=== PATIENT | female | born 1965 | race Hispanic/Latino ===

== ENCOUNTER 2022-07-14 19:55 | Emergency (ER) | payer SELFPAY ==
[2022-07-14 21:40] LABS: Protime INR 1.04
[2022-07-14 21:41] LABS: Hematocrit 41.2 % (36.0-45.0); Lymphocytes % 36.2 % (15.3-44.8); MCV 84.6 fL (80-100); MPV 8.6 fL (7.6-11.3); RBC Red Blood Cell Count 4.87 M/uL (3.86-4.86)
[2022-07-14 22:02] LABS: Bilirubin Direct 0.2 mg/dL (0-0.2); Bilirubin Total 0.8 mg/dL (0.2-1.0); Magnesium 1.7 mg/dL (1.6-2.4); Potassium 3.2 mmol/L (3.5-5.1); Protein, Total 7.7 g/dL (6.4-8.2); Troponin High Sensitivity 5.2 pg/mL (<58.9)
--- NOTE | 2022-07-14 22:14 | RAD REPORT ---
EXAM DESCRIPTION: RAD - Chest Single View - 07/14/2022 9:54 pm CLINICAL HISTORY: COUGH Chest pain. COMPARISON: No comparisons FINDINGS: Portable technique limits examination quality. The lungs are grossly clear. The heart is normal in size. No displaced fractures. IMPRESSION: No acute intrathoracic process suspected.
[2022-07-14 22:55] LABS: Urine Blood 1+ (Negative); Urine Glucose Negative (Negative); Urine Protein Negative (Negative)
--- NOTE | 2022-07-14 23:44 | EDPHYS ---
Physician Documentation [facility] Name: Liv Santiago Age: 57 yrs Sex: Female : 1965 Arrival Date: 07/14/2022 Time: 19:58 Bed 3 Private MD: ED Physician Danny Barbosa HPI: 07/14 23:36 This 57 yrs old Female presents to ER via Ambulatory with complaints of High anne Blood Pressure. 23:36 The patient has elevated blood pressure and discovered this at home, with a home anne device. Onset: The symptoms/episode began/occurred 2 day(s) ago. Historical: - Allergies: 20:17 Compazine; hb - Home Meds: 20:18 amlodipine oral [Active]; losartan oral [Active]; hb - PMHx: 20:17 HTN; hb - Immunization history:: Adult Immunizations unknown. - Social history:: Smoking status: Patient denies any tobacco usage or history of. ROS: 23:37 Constitutional: Negative for fever, chills, and weight loss, Eyes: Negative for injury, anne pain, redness, and discharge, ENT: Negative for injury, pain, and discharge, Neck: Negative for injury, pain, and swelling, Cardiovascular: Negative for chest pain, palpitations, and edema, Respiratory: Negative for shortness of breath, cough, wheezing, and pleuritic chest pain, Abdomen/GI: Negative for abdominal pain, nausea, vomiting, diarrhea, and constipation, Back: Negative for injury and pain, : Negative for injury, bleeding, discharge, and swelling, MS/Extremity: Negative for injury and deformity, Skin: Negative for injury, rash, and discoloration, Neuro: Negative for headache, weakness, numbness, tingling, and seizure, Psych: Negative for depression, anxiety, suicide ideation, homicidal ideation, and hallucinations, Allergy/Immunology: Negative for hives, rash, and allergies, Endocrine: Negative for neck swelling, polydipsia, polyuria, polyphagia, and marked weight changes, Hematologic/Lymphatic: Negative for swollen nodes, abnormal bleeding, and unusual bruising. Exam: 23:37 Constitutional: This is a well developed, well nourished patient who is awake, alert, anne and in no acute distress. Head/Face: Normocephalic, atraumatic. Eyes: Pupils equal round and reactive to light, extra-ocular motions intact. Lids and lashes normal. Conjunctiva and sclera are non-icteric and not injected. Cornea within normal limits. Periorbital areas with no swelling, redness, or edema. ENT: Nares patent. No nasal discharge, no septal abnormalities noted. Tympanic membranes are normal and external auditory canals are clear. Oropharynx with no redness, swelling, or masses, exudates, or evidence of obstruction, uvula midline. Mucous membranes moist. Neck: Trachea midline, no thyromegaly or masses palpated, and no cervical lymphadenopathy. Supple, full range of motion without nuchal rigidity, or vertebral point tenderness. No Meningismus. Chest/axilla: Normal chest wall appearance and motion. Nontender with no deformity. No lesions are appreciated. Cardiovascular: Regular rate and rhythm with a normal S1 and S2. No gallops, murmurs, or rubs. Normal PMI, no JVD. No pulse deficits. Respiratory: Lungs have equal breath sounds bilaterally, clear to auscultation and percussion. No rales, rhonchi or wheezes noted. No increased work of breathing, no retractions or nasal flaring. Abdomen/GI: Soft, non-tender, with normal bowel sounds. No distension or tympany. No guarding or rebound. No evidence of tenderness throughout. Back: No spinal tenderness. No costovertebral tenderness. Full range of motion. Skin: Warm, dry with normal turgor. Normal color with no rashes, no lesions, and no evidence of cellulitis. MS/ Extremity: Pulses equal, no cyanosis. Neurovascular intact. Full, normal range of motion. Neuro: Awake and alert, GCS 15, oriented to person, place, time, and situation. Cranial nerves II-XII grossly intact. Motor strength 5/5 in all extremities. Sensory grossly intact. Cerebellar exam normal. Normal gait. Psych: Awake, alert, with orientation to person, place and time. Behavior, mood, and affect are within normal limits. 23:37 Musculoskeletal/extremity: Extremities: all appear grossly normal, with no appreciated pain with palpation, ROM: no acute changes, Circulation is intact in all extremities. Sensation intact. Compartment Syndrome exam of affected extremity: is normal. DVT Exam: No signs of deep vein thrombosis. no pain, no swelling, no tenderness, negative Homans' sign noted on exam, no appreciated bluish discoloration, no erythema, no increased warmth. 23:47 ECG was reviewed by the Attending Physician. [facility] Vital Signs: 20:16 BP 163 / 91; Pulse 59; Resp 16; Temp 97.4; Pulse Ox 100% on R/A; Weight 65.77 kg; hb Height 5 ft. 6 in. (167.64 cm); Pain 6/10; 22:54 BP 133 / 82; Pulse 63; Resp 20 S; Pulse Ox 100% on R/A; as6 23:39 BP 123 / 80; Pulse 58; Resp 16 S; Pulse Ox 100% on R/A; as6 20:16 Body Mass Index 23.40 (65.77 kg, 167.64 cm) hb MDM: 20:39 Patient medically screened. anne 23:39 Differential diagnosis: hypertensive crisis, Malignant HTN. Data reviewed: vital signs, [facility] nurses notes. Data interpreted: classroom monitor: rate is 63 beats/min, rhythm is normal sinus rhythm, regular. Test interpretation: by ED physician or midlevel provider: ECG, plain radiologic studies. Counseling: I had a detailed discussion with the patient and/or guardian regarding: the historical points, exam findings, and any diagnostic results supporting the discharge/admit diagnosis, lab results, radiology results, the need for outpatient follow up, for definitive care, a drawing box tender, a family practitioner. 12 20:40 Order name: Basic Metabolic Panel; Complete Time: 23:32 [facility] 07/14 20:40 Order name: CBC with Diff; Complete Time: 23:32 [facility] 07/14 20:40 Order name: LFT's; Complete Time: 23:32 anne 07/14 20:40 Order name: Magnesium; Complete Time: 23:32 anne 07/14 20:40 Order name: NT PRO-BNP; Complete Time: 23:32 anne 07/14 20:40 Order name: PT-INR; Complete Time: 23:32 anne 07/14 20:40 Order name: Troponin HS; Complete Time: 23:32 anne 07/14 20:40 Order name: XRAY Chest (1 view); Complete Time: 23:32 anne 07/14 20:40 Order name: EKG; Complete Time: 20:41 anne 07/14 22:55 Order name: Urine Dipstick-Ancillary; Complete Time: 23:32 [facility] 07/14 22:57 Order name: Urine Dipstick-Ancillary [facility] 07/14 23:37 Order name: Urine Microscopic Only [facility] 07/14 20:40 Order name: Cardiac monitoring; Complete Time: 21:45 [facility] 07/14 20:40 Order name: EKG - Nurse/Tech; Complete Time: 21:45 [facility] 07/14 20:40 Order name: IV Saline Lock; Complete Time: 21:27 [facility] 07/14 20:40 Order name: Labs collected and sent; Complete Time: 21:27 [facility] 07/14 20:40 Order name: O2 Per Protocol; Complete Time: 21:45 [facility] 07/14 20:40 Order name: O2 Sat Monitoring; Complete Time: :45 [facility] 07/14 20:40 Order name: Urine Dipstick-Ancillary (obtain specimen); Complete Time: 23:02 [facility] EC:47 Rate is 53 beats/min. Rhythm is regular. QRS [place] is Normal. [place] interval is normal. QRS anne interval is normal. QT interval is normal. No Q waves. T waves are Normal. No ST changes noted. Clinical impression: Sinus bradycardia. Interpreted by me. Reviewed by me. Administered Medications: 07/15 00:06 Drug: Potassium Effervescent Tablet 25 mEq Route: PO; as 00:08 Follow up: Response: No adverse reaction as6 00:07 Drug: Norvasc (amlodipine) 5 mg Route: PO; as 00:08 Follow up: Response: No adverse reaction as6 Disposition Summary: 07/14/22 23:43 Discharge Ordered Location: Home anne Problem: new anne Symptoms: have improved anne Condition: Stable anne Diagnosis - Essential (primary) hypertension anne - UTI/ Urinary tract infection, site not specified anne Followup: anne - With: Private Physician - When: 2 - 3 days - Reason: Recheck today's complaints, Continuance of care, Re-evaluation by your physician Discharge Instructions: - Discharge Summary Sheet anne - Dysuria anne - Hypertension, Adult anne - Urinary Tract Infection, Adult anne - Urinary Tract Infection, Adult, Adzd-[id number] anne - Hypertension, Adult, Wyfa-ys-Cybp anne - How to Take Your Blood Pressure, Oqlz-ph-[id number] anne - Managing Your Hypertension anne Forms: - Medication Reconciliation Form anne - Thank You Letter anne - Antibiotic Education anne - Prescription Opioid Use anne Prescriptions: - Bactrim DS 800-160 mg Oral Tablet - take 1 tablet by ORAL route every 12 hours for 5 days; 10 tablet; Refills: 0, anne Product Selection Permitted Signatures: Dispatcher [employer] Danny Damian MD MD cha Baxter, Heather, RN RN hb Virgilio Collier RN RN as6
--- NOTE | 2022-07-14 23:44 | ER ---
Nurse's Notes [facility] Name: Liv Santiago Age: 57 yrs Sex: Female : 1965 Arrival Date: 07/14/2022 Time: 19:58 Bed 3 Private MD: Diagnosis: Essential (primary) hypertension;UTI/ Urinary tract infection, site not specified Presentation: 07/14 20:16 Chief complaint: Headache and N/V since this morning. Home BP 206/110, unable to hb tolerate PO meds. Coronavirus screen: At this time, the client does not indicate any symptoms associated with coronavirus-19. Ebola Screen: No symptoms or risks identified at this time. Initial Sepsis Screen: Does the patient meet any 2 criteria? No. Patient's initial sepsis screen is negative. Does the patient have a suspected source of infection? No. Patient's initial sepsis screen is negative. Risk Assessment: Do you want to hurt yourself or someone else? Patient reports no desire to harm self or others. Onset of symptoms was July 14, 2022. 20:16 Method Of Arrival: Ambulatory hb 20:16 Acuity: RUBEN 3 hb Historical: - Allergies: 20:17 Compazine; hb - Home Meds: 20:18 amlodipine oral [Active]; losartan oral [Active]; hb - PMHx: 20:17 HTN; hb - Immunization history:: Adult Immunizations unknown. - Social history:: Smoking status: Patient denies any tobacco usage or history of. Screenin/09 00:07 Abuse screen: Denies threats or abuse. Denies injuries from another. Nutritional as6 screening: No deficits noted. Tuberculosis screening: No symptoms or risk factors identified. Fall Risk None identified. Assessment: 07/14 21:30 General: Appears in no apparent distress. comfortable, Behavior is calm, cooperative, jb4 appropriate for age. Pain: Complains of pain in headache Pain does not radiate. Pain currently is 6 out of 10 on a pain scale. Neuro: Level of Consciousness is awake, alert, obeys commands, Oriented to person, place, time, situation. Cardiovascular: Patient's skin is warm and dry. Respiratory: Airway is patent Respiratory effort is even, unlabored, Respiratory pattern is regular, symmetrical. GI: No signs and/or symptoms were reported involving the gastrointestinal system. : No signs and/or symptoms were reported regarding the genitourinary system. EENT: No signs and/or symptoms were reported regarding the EENT system. Derm: Skin is intact, Skin is pink, warm \T\ dry. Musculoskeletal: Circulation, motion, and sensation intact. Range of motion: intact in all extremities. 22:30 Reassessment: Patient appears in no apparent distress at this time. Patient and/or jb4 family updated on plan of care and expected duration. Pain level reassessed. Patient is alert, oriented x 3, equal unlabored respirations, skin warm/dry/pink. Vital Signs: 20:16 BP 163 / 91; Pulse 59; Resp 16; Temp 97.4; Pulse Ox 100% on R/A; Weight 65.77 kg; hb Height 5 ft. 6 in. (167.64 cm); Pain 6/10; 22:54 BP 133 / 82; Pulse 63; Resp 20 S; Pulse Ox 100% on R/A; as6 23:39 BP 123 / 80; Pulse 58; Resp 16 S; Pulse Ox 100% on R/A; as6 20:16 Body Mass Index 23.40 (65.77 kg, 167.64 cm) hb ED Course: 19:58 Patient arrived in ED. jj6 20:17 Triage completed. hb 20:18 Arm band placed on. hb 20:39 Danny Barbosa MD is Attending Physician. anne 21:28 Basic Metabolic Panel Sent. rv1 21:28 CBC with Diff Sent. rv1 21:28 LFT's Sent. rv1 21:28 Magnesium Sent. rv1 21:28 NT PRO-BNP Sent. rv1 21:28 PT-INR Sent. rv1 21:28 Troponin HS Sent. rv1 21:28 Inserted saline lock: 20 gauge in left antecubital area, using aseptic technique. Blood rv1 collected. 21:51 Darrian Salas, MELODY is Primary Nurse. jb4 21:57 XRAY Chest (1 view) In Process Unspecified. EDMS 07/15 00:07 Bed in low position. Call light in reach. Side rails up X2. as6 00:08 No provider procedures requiring assistance completed. IV discontinued, intact, as6 bleeding controlled, No redness/swelling at site. Pressure dressing applied. Administered Medications: 00:06 Drug: Potassium Effervescent Tablet 25 mEq Route: PO; as6 00:08 Follow up: Response: No adverse reaction as6 00:07 Drug: Norvasc (amlodipine) 5 mg Route: PO; as6 00:08 Follow up: Response: No adverse reaction as6 Medication: 00:07 VIS not applicable for this client. as6 Outcome: 07/14 23:43 Discharge ordered by MD. rodríguez 07/15 00:08 Discharged to home ambulatory. as6 Condition: stable Discharge instructions given to patient, Instructed on discharge instructions, follow up and referral plans. medication usage, Demonstrated understanding of instructions, follow-up care, medications, Prescriptions given X 1. 00:08 Patient left the ED. as6 Signatures: Dispatcher [employer] EDMS Danny Barbosa MD MD cha Baxter, Heather, RN RN Darrian Salas RN RN jb4 Radha Colby Ashby, RN RN as6 Katie Hurtado [facility]
[2022-07-15] MEDS ORDERED: AMLODIPINE 5 MG TAB ONE (00:01)
[2022-07-15] MEDS ORDERED: POTASSIUM 25 MEQ EFFERV TAB ONE (00:02)
[2022-07-15 00:25] LABS: Urine Bacteria <20 /HPF (<20); Urine RBC <5 /HPF (None Seen)
[2022-07-15 02:18] VITALS: TEMP 97.4; O2SAT 100
[2022-07-15 02:21] VITALS: BP 123/80
--- NOTE | 2022-07-15 17:37 | EKG ---
Test Date: 2022-07-14 Test Time: 21:41:09 Maintenance Engineer: DAVIN MEASUREMENT RESULTS: Intervals: Rate: 53 DE: 160 QRSD: 88 QT: 454 QTc: 426 [place]: P: 49 DE: 160 QRS: 69 T: 67 INTERPRETIVE STATEMENTS: Sinus bradycardia Otherwise normal ECG No previous ECG available for comparison Electronically Signed On 07-15-22 17:36:36 SHAKE CUTTER by Oscar Brown
== END 2022-07-15 00:08 | disposition home or self-care (01) ==
LOC: ER 19:55
DX: I10 Essential (primary) hypertension (principal); N39.0 Urinary tract infection, site not specified; Z88.1 Allergy status to other antibiotic agents
CPT/HCPCS: 36415; 71045; 80048; 80076; 81003; 81015; 83735; 83880; 84484; 85025; 85610; 93005; 99284

== ENCOUNTER 2023-11-05 19:13 | Emergency (ER) | payer SELFPAY ==
[2023-11-05] MEDS ORDERED: IBUPROFEN 200 MG TAB PO ONE (19:42)
[2023-11-05] MEDS ORDERED: LIDOCAINE HCL JELLY 2% 6 ML SYRINGE TOP ONE (19:43)
[2023-11-05] MEDS ORDERED: IBUPROFEN 400 MG TAB ONE (19:43)
--- NOTE | 2023-11-05 20:32 | RAD REPORT ---
EXAM DESCRIPTION: - Finger-Thumb Left - 11/05/2023 8:20 pm CLINICAL HISTORY: PAIN COMPARISON: No comparisons FINDINGS/IMPRESSION: No acute fracture. No malalignment. Degenerative changes are present at the thi rd distal interphalangeal joint .
--- NOTE | 2023-11-05 21:34 | ER ---
Nurse's Notes [facility] Name: Liv Santiago Age: 58 yrs Sex: Female : 1965 Arrival Date: 11/05/2023 Time: 19:13 Bed 9 Private MD: Diagnosis: Encounter for removal of sutures Presentation: 11/04 19:30 Chief complaint: Patient states: "I got stitches on the and I want them out but as6 someone told me that it looks infected". Coronavirus screen: At this time, the client does not indicate any symptoms associated with coronavirus-19. Ebola Screen: No symptoms or risks identified at this time. Initial Sepsis Screen: Does the patient meet any 2 criteria? No. Patient's initial sepsis screen is negative. Does the patient have a suspected source of infection? No. Patient's initial sepsis screen is negative. Risk Assessment: Do you want to hurt yourself or someone else? Patient reports no desire to harm self or others. Onset of symptoms was October 24, 2023. 19:30 Acuity: RUBEN 4 as6 19:30 Method Of Arrival: Ambulatory as6 Triage Assessment: 19:39 General: Appears in no apparent distress. Behavior is calm, cooperative. Injury mb9 Description: Laceration sustained to left thumb is sutures noted was sustained sutures done on 10/24/23. Historical: - Allergies: 19:31 Compazine; as6 - PMHx: 19:31 HTN; as6 - PSHx: 19:31 section; Lithotripsy; knee; Appendectomy; as6 - Immunization history:: Adult Immunizations up to date. - Social history:: Smoking status: Patient denies any tobacco usage or history of. Screenin:40 [facility] ED Fall Risk Assessment (Adult) History of falling in the last 3 months, mb9 including since admission No falls in past 3 months (0 pts) Confusion or Disorientation No (0 pts) Intoxicated or Sedated No (0 pts) Impaired Gait No (0 pts) Mobility Assist Device Used No (0 pt) Altered Elimination No (0 pt) Score/Fall Risk Level 0 - 2 = Low Risk Oriented to surroundings, Maintained a safe environment, Educated pt \\T\\ family on fall prevention, incl call for assistance when getting out of bed. Abuse screen: Denies threats or abuse. Nutritional screening: No deficits noted. Tuberculosis screening: No symptoms or risk factors identified. Assessment: 19:38 General: Appears in no apparent distress. Behavior is calm, cooperative. Pain: mb9 Complains of pain in left thumb Pain does not radiate. Quality of pain is described as throbbing. Neuro: Boyd Agitation-Sedation Scale (RASS): 0 - Alert and Calm Level of Consciousness is awake, alert, obeys commands, Oriented to person, place, time, situation, Appropriate for age. Cardiovascular: Patient's skin is warm and dry. Respiratory: Airway is patent Respiratory effort is even, unlabored, Respiratory pattern is regular, symmetrical, Breath sounds are clear bilaterally. GI: No signs and/or symptoms were reported involving the gastrointestinal system. : No signs and/or symptoms were reported regarding the genitourinary system. EENT: No signs and/or symptoms were reported regarding the EENT system. Derm: Skin is pink, warm \\T\\ dry. Derm: sutures noted to left thumb. Musculoskeletal: Range of motion: intact in all extremities. 20:38 Reassessment: No changes from previously documented assessment. Patient and/or family mb9 updated on plan of care and expected duration. Pain level reassessed. Patient is alert, oriented x 3, equal unlabored respirations, skin warm/dry/pink. 21:26 Reassessment: Patient appears in no apparent distress at this time. Patient and/or pf1 family updated on plan of care and expected duration. Pain level reassessed. Patient is alert, oriented x 3, equal unlabored respirations, skin warm/dry/pink. Vital Signs: 19:30 BP 142 / 83; Pulse 79; Resp 17 S; Temp 97.4(TE); Pulse Ox 98% on R/A; Weight 64.86 kg as6 (R); Height 5 ft. 6 in. (R); Pain 7/10; 21:45 BP 124 / 84; Pulse 75; Resp 16; Temp 97.9; Pulse Ox 99% on R/A; Pain 0/10; pf1 19:30 Body Mass Index 23.08 (64.86 kg, 167.64 cm) as6 19:30 Pain Scale: Adult as6 21:45 Pain Scale: Adult pf1 ED Course: 19:16 Patient arrived in ED. im 19:21 Danny Noriega PA is PHCP. cp 19:21 Julian Griffin MD is Attending Physician. cp 19:31 Triage completed. as6 19:32 Arm band placed on. as6 19:38 Li Alarcon, MELODY is Primary Nurse. mb9 19:39 Placed in gown. Bed in low position. Call light in reach. Side rails up X 1. Provided mb9 Education on: press call light if needing anything. Client placed on continuous cardiac and pulse oximetry monitoring. NIBP monitoring applied. Door closed. Noise minimized. Warm blanket given. 19:59 Wound care: to laceration located on left thumb was cleaned with Betadine, soaked in mb9 Hibiclens solution, Patient tolerated well. 20:22 XRAY Finger-Thumb Left In Process Unspecified. EDMS 21:30 Dressings: gauze with Coban. pf1 21:30 Patient did not have IV access during this emergency room visit. pf1 21:45 No provider procedures requiring assistance completed. pf1 Administered Medications: 19:47 Drug: Lidocaine Mucous Membrane Gel 2 % 1 ea 15 ml Mucous Membrane once Volume: 15 ml; mb9 Route: Mucous Membrane; 19:47 Drug: Ibuprofen PO 600 mg PO once Route: PO; mb9 20:41 Follow up: Response: No adverse reaction mb9 21:38 Drug: Doxycycline PO 100 mg PO once Route: PO; pf1 21:45 Follow up: Response: No adverse reaction pf1 Medication: 19:41 VIS not applicable for this client. mb9 Outcome: 21:34 Discharge ordered by MD. cp 21:45 Discharged to home ambulatory, pf1 21:45 Condition: improved 21:45 Discharge instructions given to patient, Instructed on discharge instructions, follow up and referral plans. Demonstrated understanding of instructions, follow-up care, medications, Prescriptions given X 1, 21:45 Patient left the ED. pf1 Signatures: Dispatcher [employer] EDMS Danny Noriega PA PA cp Virgilio Collier RN RN as6 Li Alarcon, MELODY OLIVER mb9 Hoa Rodriguez RN RN pf1 Yael Santiago Corrections: (The following items were deleted from the chart) 22:01 22:01 Patient left the ED. pf1 pf1
--- NOTE | 2023-11-05 21:34 | EDPHYS ---
Physician Documentation [facility] Name: Liv Santiago Age: 58 yrs Sex: Female : 1965 Arrival Date: 11/05/2023 Time: 19:13 Bed 9 Private MD: ED Physician Julian Griffin HPI: 11/04 19:45 This 58 yrs old Female presents to ER via Ambulatory with complaints of Finger cp Injury. 19:45 The patient or guardian complains of removal of stitches from tip of left thumb that cp were placed at urgent care in [place] on 10-24-2023. 19:45 Context: patient reports laceration was sutured and then glue was placed over wound to cp help control bleeding after injury and for original treatment. patient here due to concern for wound infection. Treatment prior to arrival includes: no previous treatment. Historical: - Allergies: 19:31 Compazine; as6 - PMHx: 19:31 HTN; as6 - PSHx: 19:31 section; Lithotripsy; knee; Appendectomy; as6 - Immunization history:: Adult Immunizations up to date. - Social history:: Smoking status: Patient denies any tobacco usage or history of. ROS: 19:50 MS/extremity: Positive for swelling, tenderness, of the distal tip of left thumb, cp Negative for decreased range of motion, 19:50 All other systems are negative, cp Exam: 19:55 Constitutional: The patient appears in no acute distress, alert, awake, non-toxic, well cp developed, well nourished, 19:55 Head/Face: Normocephalic, atraumatic. cp 19:55 Musculoskeletal/extremity: Extremities: noted in the distal tip of left thumb: skin appears with dehiscence, mild swelling with minimal extension to fat pad, minimal erythema and no drainage expressed, [address], ROM: full active range of motion, in the left thumb, Perfusion: the extremity is normally perfused throughout, the distal tip of left thumb decreased sensation, mild Tendon exam: specific tendon testing normal through active and passive range of motion Vital Signs: 19:30 BP 142 / 83; Pulse 79; Resp 17 S; Temp 97.4(TE); Pulse Ox 98% on R/A; Weight 64.86 kg as6 (R); Height 5 ft. 6 in. (R); Pain 7/10; 21:45 BP 124 / 84; Pulse 75; Resp 16; Temp 97.9; Pulse Ox 99% on R/A; Pain 0/10; pf1 19:30 Body Mass Index 23.08 (64.86 kg, 167.64 cm) as6 19:30 Pain Scale: Adult as6 21:45 Pain Scale: Adult pf1 Procedures: 21:29 Suture/Staple removal: Removed 4 sutures, from distal tip of left thumb, site appears cp dehiscence of wound, mild swelling and tenderness with minimal erythema, Patient tolerated well. MDM: 19:34 Patient medically screened. cp 20:00 Differential diagnosis: cellulitis, fracture, osteomyelitis. cp 21:33 Data reviewed: vital signs, nurses notes, radiologic studies, plain films. cp 21:33 I considered the following discharge prescriptions or medication management in the emergency department Medications were administered in the Emergency Department. See MAR. Independent interpretation of the following test(s) in the Emergency Department X-Ray: My interpretation is images of left thumb negative for fracture. Counseling: I had a detailed discussion with the patient and/or guardian regarding the historical points, exam findings, and any diagnostic results supporting the discharge/admit diagnosis, radiology results, the need for outpatient follow up, a family practitioner, to return to the emergency department if symptoms worsen or persist or if there are any questions or concerns that arise at home. Response to treatment: the patient's symptoms have mildly improved after treatment, and as a result, I will discharge patient. 11/04 19:37 Order name: XRAY Finger-Thumb Left; Complete Time: 21:03 cp Administered Medications: 19:47 Drug: Lidocaine Mucous Membrane Gel 2 % 1 ea 15 ml Mucous Membrane once Volume: 15 ml; mb9 Route: Mucous Membrane; 19:47 Drug: Ibuprofen PO 600 mg PO once Route: PO; mb9 20:41 Follow up: Response: No adverse reaction mb9 21:38 Drug: Doxycycline PO 100 mg PO once Route: PO; pf1 21:45 Follow up: Response: No adverse reaction pf1 Disposition: 22:56 Co-signature as Attending Physician, Julian Griffin MD I reviewed the patient's care rn provided by the Advanced Practice Provider and agree with the diagnosis and treatment plan. Disposition Summary: 11/05/23 21:34 Discharge Ordered Notes: Location: Home cp Problem: new cp Symptoms: have improved cp Condition: Stable cp Diagnosis - Encounter for removal of sutures cp Followup: cp - With: Private Physician - When: 2 - 3 days - Reason: Wound Recheck Discharge Instructions: - Discharge Summary Sheet cp - How to Change Your Wound Dressing cp - Suture Removal, Care After cp Forms: - Medication Reconciliation Form cp - Thank You Letter cp - Antibiotic Education cp - Prescription Opioid Use cp - Patient Portal Instructions cp - Leadership Thank You Letter cp Prescriptions: - Doxycycline Monohydrate 100 mg Oral Tablet - take 1 tablet ORAL route every 12 hours for 10 days; 20 tablet; Refills: 0, cp Product Selection Permitted Signatures: Dispatcher [employer] EDJulian Boateng MD MD rn Danny Noriega PA PA cp Slawson, Ashby RN RN as6 Li Alarcon RN RN mb9 Hoa Rodriguez RN RN pf1
[2023-11-05] MEDS ORDERED: DOXYCYCLINE 100 MG CAP PO ONE (21:46)
[2023-11-06 03:42] VITALS: BP 124/84; TEMP 97.9; O2SAT 99
== END 2023-11-05 22:01 | disposition home or self-care (01) ==
LOC: ER 19:13
DX: Z48.02 Encounter for removal of sutures (principal)
CPT/HCPCS: 99284

== ENCOUNTER 2023-11-13 17:11 | Emergency (ER) | payer SELFPAY ==
--- NOTE | 2023-11-13 17:36 | EDPHYS ---
Physician Documentation [facility] Name: Liv Santiago Age: 58 yrs Sex: Female : 1965 Arrival Date: 11/13/2023 Time: 17:11 Bed Waiting Private MD: ED Physician Julian Griffin HPI: 11/12 17:28 This 58 yrs old Female presents to ER via Unassigned with complaints of Finger cp Injury - INFECTION. 17:28 Patient presents to ED for recheck of: laceration. The affected area is on the distal cp tip of left thumb. Previous treatment: The patient was initially treated on November 05, 2023, suture removal and prescribed antibiotics. 17:28 Progress: The patient reports healing well. cp Historical: - Allergies: 17:42 Compazine; as6 - PMHx: 17:42 HTN; as6 - PSHx: 17:42 section; Appendectomy; knee; Lithotripsy; as6 - Immunization history:: Adult Immunizations up to date. - Infectious Disease History:: Denies. - Social history:: Smoking status: Patient denies any tobacco usage or history of. ROS: 17:30 All other systems are negative, cp Exam: 17:31 Constitutional: The patient appears in no acute distress, alert, awake, comfortable, cp well developed, well nourished, 17:31 Skin: Wound recheck: tip of distal phalanx left thumb, laceration appears to be healing well, no erythema, minimal swelling and tenderness noted, no drainage. Vital Signs: 17:41 BP 118 / 84; Pulse 77; Resp 18 S; Temp 97.9(TE); Pulse Ox 97% on R/A; Weight 63.5 kg as6 (R); Height 5 ft. 6 in. (R); Pain 4/10; 17:41 Body Mass Index 22.60 (63.50 kg, 167.64 cm) as6 17:41 Pain Scale: Adult as6 MDM: 17:35 Patient medically screened. cp 17:35 Differential diagnosis: cellulitis. cp 17:35 Data reviewed: vital signs, nurses notes, and as a result, I will discharge patient. cp 17:35 Counseling: I had a detailed discussion with the patient and/or guardian regarding the cp historical points, exam findings, and any diagnostic results supporting the discharge/admit diagnosis, to return to the emergency department if symptoms worsen or persist or if there are any questions or concerns that arise at home. Response to treatment: improving, and as a result, I will discharge patient. Administered Medications: No medications were administered Disposition Summary: 11/13/23 17:35 Discharge Ordered Notes: Location: Home cp Problem: an ongoing problem cp Symptoms: have improved cp Condition: Stable cp Diagnosis - Hand Laceration/ Open wound of hand - left thumb cp Followup: cp - With: Private Physician - When: 2 - 3 days - Reason: Worsening of condition Discharge Instructions: - Discharge Summary Sheet cp - Nonsutured Laceration Care cp Forms: - Medication Reconciliation Form cp - Thank You Letter cp - Antibiotic Education cp - Prescription Opioid Use cp - Patient Portal Instructions cp - Leadership Thank You Letter cp Signatures: Danny Noriega PA PA cp Virgilio Collier RN RN as6 Corrections: (The following items were deleted from the chart) 17:31 17:28 Previous treatment: suture removal and prescribed antibiotics. cp cp
--- NOTE | 2023-11-13 17:44 | ER ---
Nurse's Notes [facility] Name: Liv Santiago Age: 58 yrs Sex: Female : 1965 Arrival Date: 11/13/2023 Time: 17:11 Bed Waiting Private MD: Diagnosis: Hand Laceration/ Open wound of hand-left thumb Presentation: 11/12 17:42 Chief complaint: Patient states: "I just wanted to double check my finger wasn't as6 infected". Coronavirus screen: At this time, the client does not indicate any symptoms associated with coronavirus-19. Ebola Screen: No symptoms or risks identified at this time. Initial Sepsis Screen: Does the patient meet any 2 criteria? No. Patient's initial sepsis screen is negative. Does the patient have a suspected source of infection? No. Patient's initial sepsis screen is negative. Risk Assessment: Do you want to hurt yourself or someone else? Patient reports no desire to harm self or others. Onset of symptoms was November 13, 2023. 17:42 Acuity: RUBEN 5 as6 17:42 Method Of Arrival: Ambulatory as6 Triage Assessment: 17:42 General: Appears in no apparent distress. Behavior is calm, cooperative. Pain: as6 Complains of pain in left thumb. Derm: healing wound to left thumb. Historical: - Allergies: 17:42 Compazine; as6 - PMHx: 17:42 HTN; as6 - PSHx: 17:42 section; Appendectomy; knee; Lithotripsy; as6 - Immunization history:: Adult Immunizations up to date. - Infectious Disease History:: Denies. - Social history:: Smoking status: Patient denies any tobacco usage or history of. Screenin:43 [facility] ED Fall Risk Assessment (Adult) History of falling in the last 3 months, as6 including since admission No falls in past 3 months (0 pts) Confusion or Disorientation No (0 pts) Intoxicated or Sedated No (0 pts) Impaired Gait No (0 pts) Mobility Assist Device Used No (0 pt) Altered Elimination No (0 pt) Score/Fall Risk Level 0 - 2 = Low Risk Oriented to surroundings, Maintained a safe environment, Educated pt \\T\\ family on fall prevention, incl call for assistance when getting out of bed, Assessed \\T\\ reinforced patient's understanding of fall precautions, Hourly rounding (assess needs \\T\\ fall precautionary measures) done. Abuse screen: Denies threats or abuse. Denies injuries from another. Nutritional screening: No deficits noted. Tuberculosis screening: No symptoms or risk factors identified. Vital Signs: 17:41 BP 118 / 84; Pulse 77; Resp 18 S; Temp 97.9(TE); Pulse Ox 97% on R/A; Weight 63.5 kg as6 (R); Height 5 ft. 6 in. (R); Pain 4/10; 17:41 Body Mass Index 22.60 (63.50 kg, 167.64 cm) as6 17:41 Pain Scale: Adult as6 ED Course: 17:16 Patient arrived in ED. mg5 17:17 Danny Noriega PA is PHCP. cp 17:17 Julian Griffin MD is Attending Physician. cp 17:41 Arm band placed on. as6 17:43 Triage completed. as6 17:43 Patient has correct armband on for positive identification. Provided Education on: as6 follow up. 17:43 No provider procedures requiring assistance completed. Patient did not have IV access as6 during this emergency room visit. Administered Medications: No medications were administered Medication: 17:44 VIS not applicable for this client. as6 Outcome: 17:35 Discharge ordered by . cp 17:43 Discharged to home ambulatory, as6 17:43 Condition: stable 17:43 Discharge instructions given to patient, Instructed on discharge instructions, follow up and referral plans. Demonstrated understanding of instructions, follow-up care, 17:44 Patient left the ED. as6 Signatures: Danny Noriega PA PA cp Virgilio Collier, RN RN as6 Sharri Weldon mg5
[2023-11-13 22:23] VITALS: BP 118/84; TEMP 97.9; O2SAT 97
== END 2023-11-13 17:44 | disposition home or self-care (01) ==
LOC: ER 17:11
DX: S61.012A Laceration without foreign body of left thumb without damage to nail, initial encounter (principal)
CPT/HCPCS: 99282

== ENCOUNTER 2024-01-31 13:30 | Emergency (ER) | payer SELFPAY ==
[2024-01-31 14:19] LABS: Specific Gravity 1.006 (1.005-1.030); Sqamous Epithelial <5 /HPF (None Seen); Transitional Epithelial <5 /HPF (None Seen); Urine Bacteria None Seen /HPF (<20); Urine Bilirubin NEGATIVE (Negative); Urine Blood 1+ (Negative); Urine Clarity Turbid (Clear); Urine Color Colorless (Yellow); Urine Culture Reflex Order REFLEXED; Urine Glucose NEGATIVE (Negative); Urine Ketones NEGATIVE (Negative); Urine Microscopic Reflex YN ORDER UMIC; Urine Mucus Slight /HPF (None Seen); Urine Nitrite NEGATIVE (Negative); Urine Protein NEGATIVE (Negative); Urine RBC <5 /HPF (None Seen); Urine Urobilinogen Normal (Normal)
--- NOTE | 2024-01-31 14:40 | EDPHYS ---
Physician Documentation [facility] Name: Liv Santiago Age: 58 yrs Sex: Female : 1965 Arrival Date: 01/31/2024 Time: 13:30 Bed 11 Private MD: ED Physician Danny Barbosa HPI: 01/30 14:50 This 58 yrs old Female presents to ER via Ambulatory with complaints of Pain kb With Urination, Urinary Problem. 14:50 Pt is a 58 year old female who presents for urinary frequency, urgency, dysuria and kb cloudy urine that started approx 10 days ago. Denies fever, abd pain, flank pain. Historical: - Allergies: 13:52 Compazine; tl4 - Home Meds: 13:52 amlodipine oral [Active]; losartan Oral [Active]; tl4 - PMHx: 13:52 HTN; tl4 - PSHx: 13:52 Appendectomy; section; knee; Lithotripsy; tl4 - Immunization history:: Adult Immunizations unknown. - Infectious Disease History:: Denies. - Social history:: Smoking status: Patient denies any tobacco usage or history of. ROS: 14:49 Constitutional: As per HPI kb Exam: 14:49 Constitutional: This is a well developed, well nourished patient who is awake, alert, kb and in no acute distress. Head/Face: Normocephalic, atraumatic. ENT: Moist Mucous membranes Cardiovascular: Regular rate Respiratory: Respirations even and unlabored. No increased work of breathing. Talking in full sentences Abdomen/GI: Soft, non-tender. No distention Back: No spinal tenderness. No costovertebral tenderness. Full range of motion. Skin: Warm, dry with normal turgor. Normal color. MS/ Extremity: Pulses equal, no cyanosis. Neurovascular intact. Full, normal range of motion. Neuro: Awake and alert, GCS 15, oriented to person, place, time, and situation. Moves all extremities. Normal gait. Vital Signs: 13:50 BP 138 / 80; Pulse 70; Resp 16; Temp 97.9(TE); Pulse Ox 99% on R/A; Weight 63.5 kg; tl4 Height 5 ft. 6 in. ; Pain 6/10; 13:50 Body Mass Index 22.60 (63.50 kg, 167.64 cm) tl4 13:50 Pain Scale: Adult tl4 MDM: 13:35 Patient medically screened. kb 14:49 Differential diagnosis: UTI, pyelonephritis. Data reviewed: vital signs, nurses notes. kb Counseling: I had a detailed discussion with the patient and/or guardian regarding the historical points, exam findings, and any diagnostic results supporting the discharge/admit diagnosis, lab results, the need for outpatient follow up, a family practitioner, to return to the emergency department if symptoms worsen or persist or if there are any questions or concerns that arise at home. 01/30 13:53 Order name: Urinalysis w/ reflexes; Complete Time: 14:22 kb 01/30 14:23 Order name: Urine Culture EDMS Administered Medications: No medications were administered Disposition Summary: 01/31/24 14:39 Discharge Ordered Notes: Location: Home kb Condition: Stable kb Diagnosis - UTI/ Urinary tract infection, site not specified kb Followup: kb - With: Emergency Department - When: As needed - Reason: Worsening of condition Followup: kb - With: Private Physician - When: 2 - 3 days - Reason: Recheck today's complaints, Continuance of care, Re-evaluation by your physician Discharge Instructions: - Discharge Summary Sheet kb - Urinary Tract Infection, Adult, [id number] kb Forms: - Medication Reconciliation Form kb - Antibiotic Education kb - Prescription Opioid Use kb - Patient Portal Instructions kb - Leadership Thank You Letter kb Prescriptions: - Augmentin 875-125 mg Oral Tablet - take 1 tablet ORAL route every 12 hours for 10 days; 20 tablet; Refills: 0, kb Product Selection Permitted Signatures: Dispatcher [employer] Mirian Vasquez FNP-C FNP-Ckb Logdahl, Toni, RN RN tl4
--- NOTE | 2024-01-31 14:40 | ER ---
Nurse's Notes [facility] Name: Liv Santiago Age: 58 yrs Sex: Female : 1965 Arrival Date: 01/31/2024 Time: 13:30 Bed 11 Private MD: Diagnosis: UTI/ Urinary tract infection, site not specified Presentation: 01/30 13:50 Chief complaint: Patient states: Pt c/o dysuria, frequency, urgency x 9-10 days. Pt tl4 also c/ lower abdominal pain Pt denies fever. Coronavirus screen: At this time, the client does not indicate any symptoms associated with coronavirus-19. Ebola Screen: No symptoms or risks identified at this time. Initial Sepsis Screen: Does the patient meet any 2 criteria? No. Patient's initial sepsis screen is negative. Does the patient have a suspected source of infection? No. Patient's initial sepsis screen is negative. Risk Assessment: Do you want to hurt yourself or someone else? Patient reports no desire to harm self or others. Onset of symptoms was January 21, 2024. 13:50 Method Of Arrival: Ambulatory tl4 13:50 Acuity: RUBEN 4 tl4 Triage Assessment: 13:53 General: Appears in no apparent distress. Behavior is calm, cooperative. Pain: tl4 Complains of pain in pelvis. EENT: No signs and/or symptoms were reported regarding the EENT system. Neuro: Level of Consciousness is awake, alert, obeys commands, Oriented to person, place, time, situation, Moves all extremities. Full function Gait is steady, Speech is normal. Cardiovascular: Capillary refill < 3 seconds Patient's skin is warm and dry. Respiratory: Airway is patent Respiratory effort is even, unlabored, Respiratory pattern is regular, symmetrical. GI: No signs and/or symptoms were reported involving the gastrointestinal system. : Reports burning with urination, pain with urination, urgency, urinary frequency. Derm: No signs and/or symptoms reported regarding the dermatologic system. Musculoskeletal: No signs and/or symptoms reported regarding the musculoskeletal system. Historical: - Allergies: 13:52 Compazine; tl4 - Home Meds: 13:52 amlodipine oral [Active]; losartan Oral [Active]; tl4 - PMHx: 13:52 HTN; tl4 - PSHx: 13:52 Appendectomy; section; knee; Lithotripsy; tl4 - Immunization history:: Adult Immunizations unknown. - Infectious Disease History:: Denies. - Social history:: Smoking status: Patient denies any tobacco usage or history of. Screenin:55 [facility] ED Fall Risk Assessment (Adult) History of falling in the last 3 months, as6 including since admission No falls in past 3 months (0 pts) Confusion or Disorientation No (0 pts) Intoxicated or Sedated No (0 pts) Impaired Gait No (0 pts) Mobility Assist Device Used No (0 pt) Altered Elimination No (0 pt) Score/Fall Risk Level 0 - 2 = Low Risk Oriented to surroundings, Maintained a safe environment, Educated pt \T\ family on fall prevention, incl call for assistance when getting out of bed, Assessed \T\ reinforced patient's understanding of fall precautions. Abuse screen: Denies threats or abuse. Denies injuries from another. Nutritional screening: No deficits noted. Tuberculosis screening: No symptoms or risk factors identified. Assessment: 14:45 Reassessment: Patient appears in no apparent distress at this time. Patient and/or as6 family updated on plan of care and expected duration. Pain level reassessed. Patient is alert, oriented x 3, equal unlabored respirations, skin warm/dry/pink. Vital Signs: 13:50 BP 138 / 80; Pulse 70; Resp 16; Temp 97.9(TE); Pulse Ox 99% on R/A; Weight 63.5 kg; tl4 Height 5 ft. 6 in. ; Pain 6/10; 13:50 Body Mass Index 22.60 (63.50 kg, 167.64 cm) tl4 13:50 Pain Scale: Adult tl4 ED Course: 13:33 Patient arrived in ED. ra3 13:34 Mirian Alvarez FNP-C is PHCP. kb 13:35 Danny Barbosa MD is Attending Physician. kb 13:52 Triage completed. tl4 13:54 Arm band placed on right wrist. tl4 13:55 Virgilio Collier, MELODY is Primary Nurse. as6 13:56 Bed in low position. Call light in reach. Warm blanket given. as6 14:42 Provided Education on: abx teaching . as6 14:43 No provider procedures requiring assistance completed. Patient did not have IV access as6 during this emergency room visit. Administered Medications: No medications were administered Medication: 13:56 VIS not applicable for this client. as6 Outcome: 14:39 Discharge ordered by . daniel 14:43 Discharged to home ambulatory, as6 14:43 Condition: stable 14:45 Discharge instructions given to patient, Instructed on discharge instructions, follow as6 up and referral plans. medication usage, Demonstrated understanding of instructions, follow-up care, medications, Prescriptions given X 1, 14:45 Patient left the ED. as6 Addendum: 02/02/2024 13:19 Addendum: Culture Results: Positive urine culture. No further action required. Bacteria m b4 sensitive to prescribed antibiotic. Signatures: Mirian Alvarez, YURIDIA-C PHARM TECH-CkNan Murphy mb4 Virgilio Collier RN RN as6 Dagoberto Onofre RN RN tl4 Urvashi Granger ra3 Corrections: (The following items were deleted from the chart) 01/30 13:55 13:50 Chief complaint: Patient states: Pt c/o dysuria, frequency, urgency x 9-10 days. tl4 tl4
[2024-01-31 14:54] VITALS: BP 138/80; TEMP 97.9; O2SAT 99
== END 2024-01-31 14:45 | disposition home or self-care (01) ==
LOC: ER 13:30
DX: N39.0 Urinary tract infection, site not specified (principal)
CPT/HCPCS: 81001; 87077; 87086; 87088; 87186; 99283